=== PATIENT | male | born 1945 | race Caucasian/White ===

== ENCOUNTER 2021-05-17 11:29 | Outpatient (REF) | payer MEDICARE, SELFPAY ==
[2021-05-17 14:08] LABS: Erythrocyte Sedimentation Rate 10 MM/HR (0-15)
[2021-05-19 05:02] LABS: Lyme Abs Screen <0.90 index
[2021-05-21 13:31] LABS: IgA 118 mg/dL (70-320); IgG 788 mg/dL (600-1540); IgM 28 mg/dL (50-300)
[2021-05-22 09:42] LABS: Anti Nuclear Antibody Screen POSITIVE (NEGATIVE); Anti Nuclear Antibody Titer 1:40 titer
== END 2021-05-17 11:30 | disposition home or self-care (01) ==
LOC: HO.LAB 11:29
PROVIDERS: PCP Internal Medicine; Visit Provider Psychiatry & Neurology Neurology
DX: G62.9 Polyneuropathy, unspecified (principal)
CPT/HCPCS: 36415; 82784; 85652; 86038; 86039; 86617; 86618